=== PATIENT | female | born 1990 | race Caucasian/White ===

== ENCOUNTER 2019-01-07 10:59 | Emergency (ER) | payer OTHER ==
[~2019-01-07] VITALS: Ht 167.6 cm; Wt 63.5 kg
--- NOTE | ~2019-01-07 | EMS ---
[facility] [address] [place] [address] EMS Patient Care Report Name: JAVED PARHAM Room #: [facility]..#: [id number] Admission: ������������������ Attend Phys: Discharge: ������������������ Date of : [birth year] Report #: [id number] THIS REPORT FOR: //name// Report Transmitted: 01/07/2019 10:28 EMS Care Summary [place], [place]/[facility] Incident [id number] @ 01/07/2019 10:24 Incident Location [address] / [place] [address] Patient JAVED PARHAM Female, 28 Years 1990 Patient Address [address] [place] [address] Patient History None Reported, Patient Allergies No known allergies, Patient Medications Zofran, Chief Complaint WEAKNESS, TROUBLE SEEING Disposition Transported No Lights/[place] Dispatch Reason Unconscious/Fainting Transported To [facility] Narrative UPON ARRIVAL PT UPRIGHT IN PASSENGER SEAT CONSCIOUS AND ALERT. PT IS VERY DIAPHORETIC AND APPEARS LETHARGIC. PT STARTED FEELING DIZZY, WEAK AND HAVING VISION CHANGES WHILE IN THE CAR. FAMILY STATE PT THEN PASSED OUT FOR A SHORT [facility] [address] [place] [address] EMS Patient Care Report Name: JAVED PARHAM Room #: [facility] Sarita#: [id number] Admission: ������������������ Attend Phys: Discharge: ������������������ Date of : [birth year] Report #: [id number] TIME. PT DENIES ANY PAIN. FAMILY STATES THEY WERE OUT IN THE SUN MOST OF THE DAY YESTERDAY AT A GAME. PT TRANSPORTED TO [facility]. Initial Vitals @10:43P: 52,BP: 89/54,SpO2: 100, @10:48P: 47,CO: 5,SpO2: 100, @10:36P: 41, @10:52P: 49,CO: 4,SpO2: 99, @10:35P: 44,SpO2: 95, @10:53P: 52,BP: 90/57,GCS: 15,SpO2: 99, @10:35P: 50,R: 16,BP: 67/40,Pain: 0/10,GCS: 15,Glucose: 141,SpO2: 97,Revised Trauma: 10, Assessments @10:33MENTAL:Person Oriented,Time Oriented,Event Oriented,Place Oriented,SKIN:Diaphoresis,Pale,HEENT:LUNG SOUNDS:ABDOMEN:PELVIS//GI:EXTREMITIES:Left Arm: No Abnormalities,Right Arm: No Abnormalities,Left Leg: No Abnormalities,Right Leg: No Abnormalities,PULSE:Radial: Absent,NEURO:No Abnormalities, Impression Syncope / Fainting Procedures @10:33ALS AssessmentResponse: UnchangedSucceeded@10:42Normal Saline (.9% NaCl) 1000cc (18 ga) Site: Antecubital-LeftResponse: ImprovedSucceeded@10:383-Lead ECGResponse: UnchangedSucceeded Timeline 10:21,Call Received 10:21,Dispatch Notified 10:24,Dispatched 10:25,En Route 10:32,On Scene 10:33,At Patient 10:33,ALS Assessment,Response: UnchangedSucceeded, 10:35,BP: / M,PULSE: 44,RR: R,SPO2: 95 Ox,ETCO2: ,BG: ,PAIN: ,GCS: , 10:35,BP: 67/40 M,PULSE: 50,RR: 16 R,SPO2: 97 Ox,ETCO2: ,B,PAIN: 0,GCS: 15, 10:36,BP: / M,PULSE: 41,RR: R,SPO2: Ox,ETCO2: ,BG: ,PAIN: ,GCS: , 10:38,3-Lead ECG,Response: UnchangedSucceeded, 10:42,Normal Saline (.9% NaCl) 1000cc 18 ga Site: Antecubital-Left,Response: ImprovedSucceeded, 10:43,BP: 89/54 M,PULSE: 52,RR: R,SPO2: 100 Ox,ETCO2: ,BG: ,PAIN: ,GCS: , 10:44,Depart Scene 10:48,BP: / M,PULSE: 47,RR: R,SPO2: 100 Ox,ETCO2: ,BG: ,PAIN: ,GCS: , [facility] [address] [place] [address] EMS Patient Care Report Name: JAVED PARHAM Room #: [facility] M.R.#: [id number] Admission: ������������������ Attend Phys: Discharge: ������������������ Date of : [birth year] Report #: [id number] 10:52,BP: / M,PULSE: 49,RR: R,SPO2: 99 Ox,ETCO2: ,BG: ,PAIN: ,GCS: , 10:53,BP: 90/57 M,PULSE: 52,RR: R,SPO2: 99 Ox,ETCO2: ,BG: ,PAIN: ,GCS: 15, 10:54,At Destination 11:09,Call Closed Disclaimer v1.1 Copyright 2019 [employer] This EMS Care Summary contains data elements from the applicable legal record (which may be displayed differently). It is designed to provide pertinent information for the following purposes: continuity of care, clinical quality, and state data reporting. The complete legal record is available to ED staff and administrators of the receiving hospital in [employer] Patient Tracker. All data is provided "as is."
[2019-01-07 11:23] LABS: ABSOLUTE NEUTROPHILS 7.4 thou/uL (1.4-8.2); BASOPHILS 0.3 % (0.0-2.0); HEMATOCRIT 38.5 % (37.0-47.0); HEMOGLOBIN 12.9 gm/dL (12.0-15.0); LYMPHOCYTES 10.8 % (24.0-44.0); MCH 31.4 pg (26.0-34.0); MCHC 33.4 g/dL (28.0-37.0); MCV 94.1 fL (80.0-100.0); MONOCYTES 10.3 % (1.0-8.0); PLATELET COUNT 254 thou/uL (150-400); POLYS 77.6 % (36.0-66.0); RBC 4.09 mil/uL (4.20-5.00); RDW 12.8 % (10.5-14.5); WBC 9.5 thou/uL (4.0-11.0)
[2019-01-07 11:30] LABS: CALCIUM 8.2 mg/dL (8.5-10.1)
[2019-01-07 11:36] LABS: ALBUMIN 3.1 g/dL (3.4-5.0); TOTAL BILIRUBIN 0.5 mg/dL (<0.1-1.0)
[2019-01-07 12:22] VITALS: BP 112/64
[2019-01-07 12:32] LABS: URINE BILIRUBIN NEGATIVE (Negative); URINE BLOOD NEGATIVE (Negative); URINE CLARITY CLEAR; URINE COLOR YELLOW; URINE GLUCOSE-RANDOM* NEGATIVE (Negative); URINE KETONES NEGATIVE (Negative); URINE LEUKOCYTES-REFLEX NEGATIVE (Negative); URINE NITRITE-REFLEX NEGATIVE (Negative); URINE PROTEIN (DIPSTICK) 1+ (Negative); URINE SPECIFIC GRAVITY 1.015 (1.005-1.035); URINE UROBILINOGEN 0.2 E.U./dl (0.2-1.0)
[2019-01-07] MEDS ORDERED: ONDANSETRON ODT8 MG PO (12:46)
[2019-01-07 12:55] LABS: SQUAMOUS 0-3 Few /LPF (0-3)
[2019-01-07 12:56] LABS: BACTERIA-REFLEX 1-9 Few /HPF (None Seen); CRYSTALS None Seen /LPF (None Seen); HYALINE CASTS 0-3 Few /LPF (None Seen); MUCUS 0-3 Light strn/LPF (None Seen); URINE RBC None Seen /HPF (0-2); URINE WBC-REFLEX None Seen /HPF (0-5)
--- NOTE | 2019-01-08 12:34 | EKG ---
[place] [address] [facility] [place] [address] ELECTROCARDIOGRAM REPORT Name: JAVED PARHAM [id number] ������������������ Admission: 01/07/19 ������������������ Attend Phys: Discharge: 01/07/19 ������������������ Date of : [birth year] Report #: [id number] ����������������������������������������������������������������� [id number] THIS REPORT FOR: //name// [facility] ED Test Date: 2019-01-07 Test Time: 11:04:55 Pat Name: JAVED PARHAM Department: Room: Gender: F [employer]: : 1990 Requested By: Real Hearn Order Number: [id number] MD: Ugo Foley Measurements Intervals [place] Rate: 50 P: 58 UT: 133 QRS: 50 QRSD: 88 T: 48 QT: 517 QTc: 472 Interpretive Statements Sinus rhythm Borderline prolonged QT interval No previous ECG available for comparison Electronically Signed On 01-08-2019 12:34:07 CDT by Ugo Foley [email or web address] ��������������������������������������������� <ELECTRONICALLY SIGNED> ���������������������������������������� By: Ugo Foley MD, [facility] ��������������������������������������������� 01/08/19 1234 1104 1104 Ugo Foley MD, FACC /EPI
== END 2019-01-07 12:44 | disposition home or self-care (01) ==
LOC: ER 10:59
PROVIDERS: Emergency Medicine
DX: R55 Syncope and collapse (principal); R19.7 Diarrhea, unspecified; R11.2 Nausea with vomiting, unspecified